=== PATIENT | male | born 1960 | race African-American/Black ===

== ENCOUNTER 2016-11-16 09:09 | Emergency (ER) | payer BC ==
[~2016-11-16] VITALS: Ht 182.9 cm; Wt 123.0 kg
[2016-11-16] MEDS ORDERED: HYDR25TA PO (09:24)
[2016-11-16] MEDS ORDERED: ONDANSETRON HCL 4MG/2ML VIAL IV STA (09:36)
[2016-11-16] MEDS ORDERED: MORPHINE SULFATE 4 MG/ML CPJ (NOT FOR IM USE) IV STA (09:36)
[2016-11-16] MEDS ORDERED: SODIUM CHLORIDE 0.9% 1,000 ML IV ONE (09:36)
[2016-11-16 09:53] LABS: BASOPHILS % 0.6 % (0.0-2.0); EOSINOPHILS % 1.7 % (0.0-5.0); HEMATOCRIT. 45.6 % (42.0-52.0); HEMOGLOBIN. 15.7 g/dL (14.0-18.0); LYMPHOCYTES % 41.4 % (20.0-50.0); MEAN CORPUSCULAR HEMOGLOBIN 31.3 pg (28.0-32.0); MEAN CORPUSCULAR VOLUME 90.6 fL (80.0-94.0); MEAN PLATELET VOLUME 10.6 fl (7.4-10.4); MONOCYTES % 10.1 % (2.0-8.0); NEUTROPHILS % 46.2 % (40.0-76.0); PLATELET 135 x1000/uL (130-400); RED BLOOD CELL COUNT 5.03 mill/uL (4.7-6.1); RED CELL DISTRIBUTION WIDTH 13.4 % (11.6-14.6)
[2016-11-16 10:01] LABS: CHLORIDE 108 mEq/L (98-107)
[2016-11-16 10:03] LABS: PARTIAL THROMBOPLASTIN TIME 27.9 sec (24.0-34.0); PROTHROMBIN TIME 10.8 sec
[2016-11-16 10:09] LABS: CARBON DIOXIDE 24 mEq/L (21-32)
[2016-11-16 10:11] LABS: TROPONIN I < 0.02 ng/mL (0.00-0.04)
[2016-11-16] MEDS ORDERED: ASPIRIN 81MG TABLET PO ONE (12:15)
[2016-11-16] MEDS ORDERED: NITROGLYCERIN OINT 1GM/INCH UDPKT TD ONE (12:15)
[2016-11-16 12:17] VITALS: BP 145/92
[2016-11-16] MEDS ORDERED: IOHEXOL-350 100 ML BOTTLE ONE (12:40)
[2016-11-16] MEDS ORDERED: SODIUM CHLORIDE 0.9% 10ML VIAL ONE (12:40)
== END 2016-11-16 15:01 | disposition left against medical advice (07) ==
LOC: ER 09:34 → EDBEDREQ 12:28 → EDBEDREQTM 12:28 → ENRESERV 14:28 → CANRESERV 14:28 → ER 15:01 → CANBEDREQ 11-18 22:55
DX: R07.9 Chest pain, unspecified (principal); I10 Essential (primary) hypertension; M54.2 Cervicalgia; R55 Syncope and collapse; F17.200 Nicotine dependence, unspecified, uncomplicated; Z98.890 Other specified postprocedural states
CPT/HCPCS: 36415; 70450; 71010; 71275; 72125; 80053; 83690; 83880; 84443; 84484; 85025; 85610; 85730; 93005; 96361; 96374; 96375; 99291; A4216; J2270; J2405; J7030; Q9967; Z7610